=== PATIENT | female | born 1945 | race Caucasian/White ===

== ENCOUNTER 2021-12-21 15:07 | Emergency (ER) | payer OTHER ==
[~2021-12-21] VITALS: Ht 167.6 cm; Wt 72.6 kg
[2021-12-21 15:21] VITALS: BP_SYST 117
--- NOTE | 2021-12-21 15:36 | NUR ---
HOSPICE CALLED ER TO [facility] CALLED 911 FOR TRANSFER. PLAN OF CARE INFORMED TO [employer], VERBALIZED UNDERSTADING.
--- NOTE | 2021-12-21 15:50 | NUR ---
ER at bedside examining patient.
--- NOTE | 2021-12-21 15:54 | NUR ---
Patient to ER bed HALLWAY 2 to gown for evaluation. Side rails up. Report given to COCO
--- NOTE | 2021-12-21 15:55 | NUR ---
PT BIBA FROM [facility] FOR CC OF R WRIST FRACTURE FOR POSSIBLE TREATMENT. PT IS STABLE, NAD, VSS.
--- NOTE | 2021-12-21 17:40 | NUR ---
PT OFFICIALLY DISCHARGED PER ED MD, HOWEVER, AWAITING INSURANCE FOR TRANSPORTATION BACK TO [facility].
--- NOTE | 2021-12-21 19:00 | NUR ---
SPOKE WITH STAFF AT [facility] FOR TRANSFER BACK TO FACILITY, PER NURSE, TO FAX PATIENT INFORMATION.
--- NOTE | 2021-12-21 19:30 | NUR ---
Spoke with patient about update on transportation. Pt resting comfortably in bed and denies pain at this moment. No signs of resp distress, even and unlabored respirations at this time.
[2021-12-21] MEDS ORDERED: ACETAMINOPHEN 325 MG TABLET PO ONE (21:45)
[2021-12-21] MEDS ORDERED: ACETAMINOPHEN 325 MG TABLET ONE (21:46)
--- NOTE | 2021-12-21 22:45 | NUR ---
Pt stated she ws feeling some back discomfort. Repositioned pt and applied pillows under her on both sides. Pt reports feeling relief after the repositioning.
[2021-12-22] MEDS ORDERED: IBUPROFEN 400 MG TABLET PO ONE (01:00)
--- NOTE | 2021-12-22 02:53 | NUR ---
Pt repositioned in bed for comfort. Pt VSS. Safety precautions in place.
--- NOTE | 2021-12-22 04:47 | NUR ---
report given to Eli STONE.
--- NOTE | 2021-12-22 05:10 | NUR ---
Received pt from Esmer RN at 0445. Pt moved to bed 7 and changed all linens and pt given vikki care. Pt noted alert with periods of confusion. VSS. Pending d/c, waiting for ambulance transport back to facility.
[2021-12-22 05:11] VITALS: BP_SYST 133
--- NOTE | 2021-12-22 07:30 | NUR ---
patient d/c back to facility with medic 1 unit 312.
--- NOTE | 2021-12-22 07:34 | NUR ---
Patient given written and verbal discharge instructions and verbalizes understanding. ER MD discussed with patient the results and treatment provided. Patient in stable condition. ID arm band removed. IV catheter removed intact and dressing applied, no active bleeding. Rx of given. Patient educated on pain management and to follow up with PMD. Pain Scale . Opportunity for questions provided and answered. Medication side effect fact sheet provided. left by ambulance medic 1 unit 312.
== END 2021-12-22 07:34 | disposition home or self-care (01) ==
LOC: SED 15:07
DX: S52.501A Unspecified fracture of the lower end of right radius, initial encounter for closed fracture (principal); K21.9 Gastro-esophageal reflux disease without esophagitis; I10 Essential (primary) hypertension; E78.5 Hyperlipidemia, unspecified; Z79.899 Other long term (current) drug therapy; W01.0XXA Fall on same level from slipping, tripping and stumbling without subsequent striking against object, initial encounter; Y93.89 Activity, other specified; Y92.89 Other specified places as the place of occurrence of the external cause; Y99.8 Other external cause status
CPT/HCPCS: 99283